=== PATIENT | male | born 1980 | race American Indian/Alaskan Native ===

== ENCOUNTER 2024-07-27 18:09 | Emergency (ER) | payer MEDICAID ==
[~2024-07-27] VITALS: Ht 188 cm; Wt 106.8 kg
[2024-07-27 18:13] VITALS: TEMP 97.8
[2024-07-27 18:37] LABS: BASOPHILS % (AUTO) 0.6 % (0.0-2.0); EOSINOPHILS % (AUTO) 3.1 % (1.0-6.0); HEMATOCRIT 43.8 % (41-53); HEMOGLOBIN 14.3 g/dL (13.5-17.5); LYMPHOCYTES # (AUTO) 1.2 K/uL (1.0-4.8); LYMPHOCYTES % (AUTO) 15.8 % (22.0-44.0); MEAN CORPUSCULAR HEMOGLOBIN 27.9 pg (26.0-34.0); MEAN CORPUSCULAR HGB CONC 32.6 G/dL (31.0-37.0); MEAN CORPUSCULAR VOLUME 86 fL (80-100); MONOCYTES # (AUTO) 0.9 K/uL (0.1-1.0); MONOCYTES % (AUTO) 11.6 % (2.0-9.0); NEUTROPHILS # (AUTO) 5.5 K/uL (1.8-7.7); NEUTROPHILS % (AUTO) 68.9 % (40.0-70.0); PLATELET COUNT (AUTO) 359 K/uL (150-450); RED BLOOD CELL COUNT(AUTO) 5.12 MIL/uL (4.50-5.90); RED CELL DISTRIBUTION WIDTH 14.6 % (11.5-14.5); WHITE BLOOD COUNT (AUTO) 7.9 K/uL (4.5-11.0)
[2024-07-27 18:47] LABS: ANION GAP 8 mmol/L (8-16); CALCIUM, TOTAL 8.8 mg/dL (8.8-10.5); CARBON DIOXIDE 27 mmol/L (22-29); CHLORIDE 103 mmol/L (98-107); CREATININE 0.98 mg/dL (0.60-1.30); GLOMERULAR FILTR. RATE CALC > 60 mL/min (>60); GLUCOSE,RANDOM 89 mg/dL (70-110); POTASSIUM 4.3 mmol/L (3.5-5.1); SODIUM SERUM 138 mmol/L (136-145); UREA NITROGEN, BLOOD 12 mg/dL (7-18)
[2024-07-27 18:53] LABS: ALBUMIN 3.3 g/dL (3.4-5.0); BILIRUBIN,DIRECT 0.1 mg/dL (0.00-0.20); BILIRUBIN,TOTAL 0.5 mg/dL (0.1-1.0); TOTAL PROTEIN, SERUM 6.6 g/dL (6.4-8.2)
[2024-07-27 18:56] LABS: TROPONIN I-HIGH SENSITIVITY 60 ng/L (<76)
[2024-07-27 19:15] VITALS: BP 141/70; PULSE 91; RESP 19; O2SAT 99
== END 2024-07-27 19:45 | disposition home or self-care (01) ==
LOC: EMS 18:14
DX: R00.2 Palpitations (principal); Z98.890 Other specified postprocedural states
CPT/HCPCS: 80048; 80076; 83735; 84484; 85025; 93005; 99284

== ENCOUNTER 2024-08-10 19:02 | Emergency (ER) | payer MEDICAID, OTHER ==
[~2024-08-10] VITALS: Ht 188 cm; Wt 104.5 kg
[2024-08-10 19:12] VITALS: BP 139/111; PULSE 73; RESP 18; TEMP 98.9; O2SAT 96
[2024-08-10] MEDS ORDERED: IBUP-1492 PO (20:09)
[2024-08-10] MEDS ORDERED: AMOX-457 PO (20:09)
[2024-08-10] MEDS ORDERED: ACET-3385 PO (20:09)
[2024-08-10] MEDS ORDERED: CLIN-26 PO (20:12)
[2024-08-10] MEDS ORDERED: AMOX TR/POT CLAV 875 MG/125 MG TABLET PO ONE (20:15)
[2024-08-10] MEDS: clindamycin HCL 150 MG CAPSULE PO ONE (20:30)
[2024-08-10] MEDS: IBUPROFEN 600 MG TABLET PO ONE (20:30)
== END 2024-08-10 20:43 | disposition home or self-care (01) ==
LOC: EMS 19:02
DX: K02.9 Dental caries, unspecified (principal); K03.2 Erosion of teeth; Z98.890 Other specified postprocedural states; Z88.0 Allergy status to penicillin
CPT/HCPCS: 99283